=== PATIENT | female | born 1955 | race Caucasian/White ===

== ENCOUNTER 2017-02-17 21:23 | Emergency (ER) | payer BC ==
[~2017-02-17] VITALS: Ht 157.5 cm; Wt 61.0 kg
[~2017-02-17 21:23] MED LIST: ATIVAN1 MG PO; CITALOPRAM HBR20 MG PO; DIOVAN80 MG PO; PRILOSEC20 MG PO; SIMVASTATIN10 MG PO; TENEX1 MG PO
[2017-02-17 23:50] VITALS: BP 189/91
== END 2017-02-17 23:50 | disposition home or self-care (01) ==
LOC: EME 21:23
DX: I10 Essential (primary) hypertension (principal); R20.2 Paresthesia of skin; R51 Headache; E78.5 Hyperlipidemia, unspecified
CPT/HCPCS: 80053; 85027; 99281; 99283